=== PATIENT | female | born 1995 | race American Indian/Alaskan Native ===

== ENCOUNTER 2017-12-26 00:11 | Emergency (ER) | payer SELFPAY ==
[2017-12-26 00:22] VITALS: BP 125/81; PULSE 89; RESP 20; TEMP 98.3; O2SAT 98
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
== END 2017-12-26 02:24 | disposition home or self-care (01) ==
LOC: C.ER 00:11
DX: R07.89 Other chest pain (principal); V89.2XXA Person injured in unspecified motor-vehicle accident, traffic, initial encounter

== ENCOUNTER 2019-03-06 16:35 | Emergency (ER) | payer MEDICAID, OTHER ==
[2019-03-06 16:44] VITALS: BP 132/88; PULSE 90; RESP 18; TEMP 98.7; O2SAT 100; BMI 25.7
--- NOTE | 2019-03-06 17:17 | C.PDOC ---
History Of Present Illness 23-year-old female presents to the ED requesting a test. Patient does not offer any other complaints at this time. Time Seen by Provider: 03/06/19 17:10 Chief Complaint (Nursing): Female Genitourinary History Per: Patient History/Exam Limitations: no limitations Onset/Duration Of Symptoms: Days Past Medical History Reviewed: Historical Data, Nursing Documentation, Vital Signs Vital Signs: Last Vital Signs Temp 98.7 F 03/06/19 16:40 Pulse 90 03/06/19 16:40 Resp 18 03/06/19 16:40 BP 132/88 03/06/19 16:40 Pulse Ox 100 03/06/19 16:40 Primary Care Provider: Williams Gonzalez - Medical History PMH: No Chronic Diseases Surgical History: No Surg Hx Family History: States: Unknown Family Hx - Social History Hx Alcohol Use: No Hx Substance Use: No Review Of Systems Constitutional: Positive for: Other (requesting test ) Physical Exam - Physical Exam Appears: Non-toxic, No Acute Distress Skin: Normal Color, Warm, Dry Neurological/Psych: Normal Speech, Normal Cognition ED Course And Treatment O2 Sat by Pulse Oximetry: 100 (on RA ) Pulse Ox Interpretation: Normal Progress Note: test ordered, resulted negative. Patient informed of results. Disposition - Disposition Disposition: HOME/ ROUTINE Disposition Time: 17:16 Condition: STABLE Additional Instructions: Follow up with PMD within 1-2 days. Return to ED if feel worse. Instructions: Tests Forms: [facility] (Macanese) - Clinical Impression Clinical Impression: test negative - PA / RADIOTELEGRAPHIST / Resident Statement MD/DO has reviewed & agrees with the documentation as recorded. - Scribe Statement The provider has reviewed the documentation as recorded by the Scribe (Tia Lopez) All medical record entries made by the Scribe were at my direction and perso nicolas dictated by me. I have reviewed the chart and agree that the record accurately reflects my personal performance of the history, physical exam, medical decision making, and the department course for this patient. I have also personally directed, reviewed, and agree with the discharge instructions and disposition.
== END 2019-03-06 17:28 | disposition home or self-care (01) ==
LOC: C.ER 16:35
DX: Z32.02 Encounter for pregnancy test, result negative (principal)